=== PATIENT | male | born 1995 | race Caucasian/White ===

== ENCOUNTER 2016-11-14 18:10 | Emergency (ER) | payer SELFPAY ==
[~2016-11-14] VITALS: Ht 182.9 cm; Wt 117.0 kg
== END 2016-11-14 18:47 | disposition short-term general hospital (02) ==
LOC: ER 18:10
DX: L20.9 Atopic dermatitis, unspecified (principal); Z88.8 Allergy status to other drugs, medicaments and biological substances; Z91.018 Allergy to other foods

== ENCOUNTER 2016-11-16 12:42 | Emergency (ER) | payer SELFPAY ==
[~2016-11-16] VITALS: Ht 182.9 cm; Wt 115.2 kg
[2016-11-16] MEDS ORDERED: ZYRTEC10 MG PO (13:21)
== END 2016-11-16 13:15 | disposition short-term general hospital (02) ==
LOC: ER 12:42
DX: L29.9 Pruritus, unspecified (principal); L30.9 Dermatitis, unspecified